=== PATIENT | female | born 2000 | race Caucasian/White ===

== ENCOUNTER 2019-07-10 06:00 | Emergency (ER) | payer BC ==
[2019-07-10] MEDS ORDERED: TRAMADOL HCL 50 MG TAB ONE (07:59)
[2019-07-10 08:39] VITALS: BP 132/70; TEMP 97.7; O2SAT 100
--- NOTE | 2019-07-10 09:32 | RAD REPORT ---
EXAM DESCRIPTION: RAD - Ankle Left 3 View -07/10/2019 7:32 am CLINICAL HISTORY: Left ankle pain status post injury FINDINGS: No fracture or dislocation is seen.
--- NOTE | 2019-07-11 18:43 | EDPHYS ---
Physician Documentation [facility] Name: Mariam Groves Age: 18 yrs Sex: Female : 2000 Arrival Date: 07/10/2019 Time: 06:02 Bed 19 Private MD: ED Physician Guillermo Bailey HPI: 07/09 07:29 This 18 yrs old Female presents to ER via Ambulatory with complaints of Ankle kdr Injury. 07:29 The patient presents with a contusion, decreased range of motion, an injury, pain, kdr tenderness. The complaints affect the left ankle. Onset: The symptoms/episode began/occurred suddenly, yesterday. Context: The problem was sustained at work, resulted from a heavy object falling, furniture or furniture accessory, Contusion. Associated signs and symptoms: The patient has no apparent associated signs or symptoms. Modifying factors: The symptoms are alleviated by nothing, the symptoms are aggravated by weight bearing, movement. Severity of symptoms: At their worst the symptoms were mild, moderate, just prior to arrival, in the emergency department the symptoms are unchanged. The patient has not experienced similar symptoms in the past. The patient has not recently seen a physician. 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 - Social history:: Smoking status: Patient denies any tobacco usage or history of. ROS: 07:29 Constitutional: Negative for fever, chills, and weight loss, Eyes: Negative for injury, kdr pain, redness, and discharge, Neck: Negative for injury, pain, and swelling, Cardiovascular: Negative for chest pain, palpitations, and edema. 07:29 MS/extremity: Positive for contusion, decreased range of motion, tenderness. Exam: 07:29 Constitutional: This is a well developed, well nourished patient who is awake, alert, kdr and in no acute distress. 07:29 Musculoskeletal/extremity: Extremities: grossly normal except: noted in the right ankle and medial aspect of right foot: decreased ROM, pain, tenderness, pain. Vital Signs: 06:11 BP 132 / 70; Pulse 72; Resp 16; Temp 97.7; Pulse Ox 100% on R/A; Pain 7/10; sg MDM: 07:58 Patient medically screened. kdr 08:00 Data reviewed: vital signs, nurses notes, radiologic studies. Counseling: I had a kdr detailed discussion with the patient and/or guardian regarding: the historical points, exam findings, and any diagnostic results supporting the discharge/admit diagnosis, radiology results, the need for outpatient follow up. ED course: The patient was stable int he Ed and happy with the care provided and the plan for discharge and follow-up. 07/09 06:11 Order name: Ankle Left 3 View XRAY 07/09 07:57 Order name: Kenneth wrap-joint: Left ankle; Complete Time: 08:18 kdr Administered Medications: 07:50 Drug: traMADol 50 mg Route: PO; iw Disposition: 07/10/19 07:58 Discharged to Home. Impression: Contusion of left ankle. - Condition is Stable. - Discharge Instructions: Crutch Use, [id number]. - Prescriptions for Tramadol 50 mg Oral Tablet - take 1 tablet by ORAL route every 8 hours as needed; 12 tablet. - Medication Reconciliation Form, Thank You Letter, Prescription Opioid Use, Work release form form. - Follow up: Private Physician; When: 2 - 3 days; Reason: If symptoms return, Further diagnostic work-up, Recheck today's complaints, Continuance of care, Re-evaluation by your physician. - Problem is new. - Symptoms have improved. Signatures: Dispatcher [employer] EDMS Cameron West RN RN Guillermo Bailey MD MD [facility] Myranda Santillan RN RN Corrections: (The following items were deleted from the chart) 08:33 07:58 07/10/2019 07:58 Discharged to Home. Impression: Contusion of left ankle. iw Condition is Stable. Forms are Medication Reconciliation Form, Thank You Letter, Antibiotic Education, Prescription Opioid Use. Follow up: Private Physician; When: 2 - 3 days; Reason: If symptoms return, Further diagnostic work-up, Recheck today's complaints, Continuance of care, Re-evaluation by your physician. Problem is new. Symptoms have improved. kdr
--- NOTE | 2019-07-11 18:43 | ER ---
Nurse's Notes [facility] Name: Mariam Groves Age: 18 yrs Sex: Female : 2000 Arrival Date: 07/10/2019 Time: 06:02 Bed 19 Private MD: Diagnosis: Contusion of left ankle Presentation: 07/09 06:09 Acuity: LESLY 4 sg 06:11 Chief complaint: Patient states: Reports she hit her left ankle at work last night ea against at table, pt reports swelling and pain to area. Coronavirus screen: Proceed with normal triage. Ebola Screen: No symptoms or risks identified at this time. Initial Sepsis Screen:. 06:11 Method Of Arrival: Ambulatory ea 06:11 Initial Sepsis Screen: Does the patient meet any 2 criteria? No. Patient's initial sg sepsis screen is negative. Does the patient have a suspected source of infection? No. Patient's initial sepsis screen is negative. Risk Assessment: Do you want to hurt yourself or someone else? Patient reports no desire to harm self or others. Onset of symptoms was July 10, 2019. Care prior to arrival: None. 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 - Social history:: Smoking status: Patient denies any tobacco usage or history of. Screenin:31 Abuse screen: Denies threats or abuse. Denies injuries from another. Nutritional iw screening: No deficits noted. Tuberculosis screening: No symptoms or risk factors identified. Fall Risk None identified. Assessment: 07:31 General: Appears in no apparent distress. comfortable, Behavior is calm, cooperative. iw Pain: Complains of pain in left lateral ankle. Neuro: Level of Consciousness is awake, alert, obeys commands, Oriented to person, place, time, situation, Moves all extremities. Full function. Cardiovascular: Patient's skin is warm and dry. Respiratory: Respiratory effort is even, unlabored. Derm: Skin is intact, is healthy with good turgor. Musculoskeletal: Range of motion: intact in all extremities. Vital Signs: 06:11 BP 132 / 70; Pulse 72; Resp 16; Temp 97.7; Pulse Ox 100% on R/A; Pain 7/10; sg ED Course: 06:02 Patient arrived in ED. ds1 06:10 Triage completed. sg 06:11 Arm band placed on. sg 07:21 Guillermo Bailey MD is Attending Physician. kdr 07:31 Myranda Santillan, RN is Primary Nurse. iw 07:32 Ankle Left 3 View XRAY In Process Unspecified. EDMS 07:45 Patient has correct armband on for positive identification. iw 08:32 No provider procedures requiring assistance completed. Patient did not have IV access iw during this emergency room visit. Administered Medications: 07:50 Drug: traMADol 50 mg Route: PO; iw Outcome: 07:58 Discharge ordered by . kdr 08:32 Discharged to home via wheelchair, with family. iw 08:32 Condition: good 08:32 Discharge instructions given to patient, Instructed on discharge instructions, follow up and referral plans. medication usage, Demonstrated understanding of instructions, follow-up care, medications, Prescriptions given X 1. 08:33 Patient left the ED. iw Signatures: Dispatcher [employer] EDMS Cameron West, RN RN Guillermo Bailey MD MD kdr Arelis Hampton ds1 Myranda Santillan, RN EVERARDO iw Yesenia Brasher RN RN black
== END 2019-07-10 08:33 | disposition home or self-care (01) ==
LOC: ER 06:00
DX: S90.02XA Contusion of left ankle, initial encounter (principal); W22.8XXA Striking against or struck by other objects, initial encounter; Y93.9 Activity, unspecified; Y92.89 Other specified places as the place of occurrence of the external cause; Y99.8 Other external cause status
CPT/HCPCS: 99283

== ENCOUNTER 2019-10-20 11:05 | Emergency (ER) | payer BC ==
[2019-10-20] MEDS ORDERED: PROMETHAZINE INJ 25 MG/ML AMP ONE (12:24)
[2019-10-20] MEDS ORDERED: NA CHLORIDE 0.9% 1,000 ML ONE (12:24)
[2019-10-20] MEDS ORDERED: FAMOTIDINE 20 MG/2 ML VIAL IV ONE (12:24)
[2019-10-20 12:48] LABS: Absolute Lymphocytes (CBC) 1.3 K/uL (0.7-4.9); Basophils % 0.2 % (0-1.3); Hematocrit 39.4 % (36.0-45.0); Lymphocytes % 15.8 % (15.3-44.8); MPV 8.1 fL (7.6-11.3); RBC Red Blood Cell Count 4.48 M/uL (3.86-4.86)
[2019-10-20 13:03] LABS: ALT/SGPT 22 U/L (12-78); AST/SGOT 16 U/L (15-37); Albumin 4.5 g/dL (3.4-5.0); Alkaline Phosphatase 85 U/L (45-117); BUN Blood Urea Nitrogen 8 mg/dL (7-18); Bicarbonate 28 mmol/L (21-32); Bilirubin Direct 0.1 mg/dL (0-0.2); Bilirubin Total 0.5 mg/dL (0.2-1.0); Glucose Level 103 mg/dL (74-106); Lipase 44 U/L (73-393); Potassium 3.5 mmol/L (3.5-5.1); Protein, Total 8.4 g/dL (6.4-8.2); Sodium Level 141 mmol/L (136-145)
[2019-10-20 13:24] LABS: Urine Blood NEGATIVE (NEG); Urine Glucose NEGATIVE (NEG); Urine Protein 1+ (NEG); Urine Specific Gravity 1.025 (1.005-1.030); Urine pH 6.5 (5.0-7.0)
[2019-10-20 13:28] LABS: Urine Bacteria >50 /HPF (<20); Urine Culture Reflex Order NOT NEEDED; Urine Mucus HEAVY /HPF (NONE SEEN); Urine RBC <5 /HPF (NONE SEEN)
--- NOTE | 2019-10-20 13:57 | RAD REPORT ---
EXAM DESCRIPTION: CT - Abdomen Pelvis W Contrast - 10/20/2019 1:42 pm CLINICAL HISTORY: Abd pain;Nausea / vomiting COMPARISON: No comparisons TECHNIQUE: Biphasic, helical CT imaging of the abdomen and pelvis was performed following 100 ml non -ionic IV contrast. No oral contrast administered. All CT scans are performed using dose optimization technique as appropriate and may include automated exposure control or mA/KV adjustment according to patient size. FINDINGS: No suspicious findings in the lung bases. The liver, spleen, and pancreas show no suspicious findings. Gallbladder and biliary tree are also wi thout suspicious finding. Symmetric renal function is seen with no hydronephrosis or suspicious renal mass. No pyelonephritis o r acute parenchymal process. No bladder abnormalities. No adrenal abnormalities. Uterus and ovaries s how no suspicious findings. No dilated bowel loops or bowel wall thickening. The appendix is not clearly defined. There are no ap pendicitis findings of the right lower quadrant. No free air, free fluid or inflammatory stranding. No hernia, mass or bulky lymphadenopathy. No suspicious bony findings. IMPRESSION: Contrast enhanced CT abdomen and pelvis showing no significant or suspicious finding.
--- NOTE | 2019-10-20 14:21 | EDPHYS ---
Physician Documentation [facility] Name: Mariam Groves Age: 19 yrs Sex: Female : 2000 Arrival Date: 10/20/2019 Time: 11:08 Bed 20 Private MD: ED Physician Cy Griffin HPI: 10/19 12:53 This 19 yrs old Female presents to ER via Ambulatory with complaints of rn Abdominal Pain, Vomiting - blood. 12:53 This 19 yrs old Female presents to ER via Ambulatory with complaints of rn Abdominal Pain, Vomiting . 12:53 The patient presents to the emergency department with nausea, vomiting, abdominal pain. rn Onset: The symptoms/episode began/occurred 3 day(s) ago. Possible causes: unknown. The symptoms are aggravated by nothing. The symptoms are alleviated by nothing. Severity of symptoms: At their worst the symptoms were moderate in the emergency department the symptoms are unchanged. The patient has not experienced similar symptoms in the past. The patient has not recently seen a physician. Reports abd pain, vomiting, for 3 days, has happened multiple times in past, called "gastroenteritis", seen by GI and given nausea medication in past, states wants a cure for this. No famhx of IBD. No blood in stool. Did notice a small amount of blood in emesis. No other medical problems. . 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 - Social history:: Smoking status: Patient reports the use of cigarette tobacco products, denies chronic smoking, but will smoke occasionally, Patient/guardian denies using tobacco, but has a distant history of tobacco abuse. - Family history:: not pertinent. - Hospitalizations: : No recent hospitalization is reported. ROS: 12:53 Constitutional: Negative for fever, chills, and weight loss, Cardiovascular: Negative rn for chest pain, palpitations, and edema, Respiratory: Negative for shortness of breath, cough, wheezing, and pleuritic chest pain, Abdomen/GI: + abd pain/nausea/vomiting Back: Negative for injury and pain, MS/Extremity: Negative for injury and deformity, Skin: Negative for injury, rash, and discoloration, Neuro: Negative for headache, weakness, numbness, tingling, and seizure. Exam: 12:53 Constitutional: This is a well developed, well nourished patient who is awake, alert, rn leaning forward and holding emesis bag. Head/Face: Normocephalic, atraumatic. Cardiovascular: Regular rate and rhythm. No pulse deficits. Respiratory: Hyperventilating and crying. Abdomen/GI: soft, mild periumbilical tenderness Skin: Warm, dry MS/ Extremity: Pulses equal, no cyanosis. Neurovascular intact. Full, normal range of motion. Equal circumference. Neuro: Awake and alert, GCS 15 Vital Signs: 11:24 BP 109 / 70; Pulse 69; Resp 15 S; Temp 97.1(TE); Pulse Ox 100% on R/A; Weight 90.72 kg ca1 (R); Height 5 ft. 4 in. (162.56 cm) (R); Pain 9/10; 12:45 BP 124 / 75; Pulse 65; Resp 28; Pulse Ox 100% on R/A; Pain 10/10; jr10 14:20 BP 102 / 47; Pulse 59; Resp 20; Pulse Ox 99% ; Pain 3/10; jr10 11:24 Body Mass Index 34.33 (90.72 kg, 162.56 cm) ca1 MDM: 11:53 Patient medically screened. rn 14:18 Differential diagnosis: gastritis, appendicitis, viral gastroenteritis, rn gastroenteritis. Data reviewed: vital signs, nurses notes, lab test result(s), radiologic studies, CT scan, and as a result, I will discharge patient. Counseling: I had a detailed discussion with the patient and/or guardian regarding: the historical points, exam findings, and any diagnostic results supporting the discharge/admit diagnosis, lab results, radiology results, the need for outpatient follow up, to return to the emergency department if symptoms worsen or persist or if there are any questions or concerns that arise at home. Response to treatment: the patient's symptoms have markedly improved after treatment, and as a result, I will discharge patient. Special discussion: Based on the patient's Hx, exam, and Dx evaluation, there is no indication for emergent surgery or inpatient Tx. It is understood by the patient/guardian that if the Sx's persist or worsen they need to return immediately for re-evaluation. I discussed with the patient/guardian in detail that at this point there is no indication for admission to the hospital. It is understood, however, that if the symptoms persist or worsen the patient needs to return immediately for re-evaluation. ED course: NO acute findings on CT, improved nausea, will dc home with phenergan and GI f/u. . 10/19 11:54 Order name: Basic Metabolic Panel; Complete Time: 13:40 rn 10/19 11:54 Order name: CBC with Diff; Complete Time: 13:40 rn 10/19 11:54 Order name: Hepatic Function; Complete Time: 13:40 rn 10/19 11:54 Order name: Lipase; Complete Time: 13:40 rn 10/19 11:54 Order name: Urine Microscopic Only; Complete Time: 13:40 rn 10/19 13:17 Order name: Urine Dipstick--Ancillary (enter results); Complete Time: 13:40 10/19 11:54 Order name: IV Saline Lock; Complete Time: 13:22 rn 10/19 11:54 Order name: Labs collected and sent; Complete Time: 13:22 rn 10/19 11:54 Order name: Urine Test (obtain specimen); Complete Time: 12:07 rn 10/19 12:03 Order name: CT Abd/Pelvis - IV Contrast Only; Complete Time: 14:15 rn 10/19 13:17 Order name: Urine --Ancillary (enter results); Complete Time: 13:40 10/19 11:54 Order name: Urine Dipstick-Ancillary (obtain specimen); Complete Time: 13:21 rn Administered Medications: 12:42 Drug: NS 0.9% 1000 ml Route: IV; Rate: 1000 ml; Site: left wrist; jr10 14:34 Follow up: Response: No adverse reaction; IV Status: Completed infusion jr10 13:17 Drug: Pepcid 20 mg Route: IVP; Site: left wrist; jr10 14:34 Follow up: Response: No adverse reaction jr10 13:17 Drug: Phenergan 25 mg Route: IVP; Site: left wrist; jr10 14:34 Follow up: Response: No adverse reaction jr10 Disposition: 10/20/19 14:20 Discharged to Home. Impression: Vomiting, Unspecified abdominal pain. - Condition is Stable. - Discharge Instructions: Abdominal Pain, Adult, Nausea and Vomiting, Adult. - Prescriptions for Phenergan 25 mg Rectal Suppository - insert 1 suppository by RECTAL route every 6 hours As needed; 12 suppository. promethazine 25 mg Oral Tablet - take 1 tablet by ORAL route every 6 hours As needed; 12 tablet. - Medication Reconciliation Form, Thank You Letter, Antibiotic Education, Prescription Opioid Use form. - Follow up: Private Physician; When: As needed; Reason: Recheck today's complaints, Re-evaluation by your physician. - Problem is new. - Symptoms have improved. Signatures: Dispatcher [employer] EDMS Cy Griffin MD MD rn Franky, EVERARDO Lizarraga RN Cecelia Alba RN RN jr10 Corrections: (The following items were deleted from the chart) 14:56 14:20 10/20/2019 14:20 Discharged to Home. Impression: Vomiting; Unspecified abdominal jr10 pain. Condition is Stable. Forms are Medication Reconciliation Form, Thank You Letter, Antibiotic Education, Prescription Opioid Use. Follow up: Private Physician; When: As needed; Reason: Recheck today's complaints, Re-evaluation by your physician. Problem is new. Symptoms have improved. rn
--- NOTE | 2019-10-20 14:21 | ER ---
Nurse's Notes [facility] Name: Mariam Groves Age: 19 yrs Sex: Female : 2000 Arrival Date: 10/20/2019 Time: 11:08 Bed 20 Private MD: Diagnosis: Vomiting;Unspecified abdominal pain Presentation: 10/19 11:24 Chief complaint: Patient states: Have gastroenteritis, taking Protonix, no relief. N/V ca1 x 3 days, unable to tolerate fluids, reports vomiting blood this morning. Reports mid abdominal pain. Coronavirus screen: Client denies travel out of the [place] in the last 14 days. At this time, the client does not indicate any symptoms associated with coronavirus-19. Ebola Screen: Patient negative for fever greater than or equal to 101.5 degrees Fahrenheit, and additional compatible Ebola Virus Disease symptoms Patient denies exposure to infectious person. Patient denies travel to an Ebola-affected area in the 21 days before illness onset. No symptoms or risks identified at this time. Initial Sepsis Screen: Does the patient meet any 2 criteria? No. Patient's initial sepsis screen is negative. Does the patient have a suspected source of infection? No. Patient's initial sepsis screen is negative. Risk Assessment: Do you want to hurt yourself or someone else? Patient reports no desire to harm self or others. Onset of symptoms was October 20, 2019. 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 - Social history:: Smoking status: Patient reports the use of cigarette tobacco products, denies chronic smoking, but will smoke occasionally, Patient/guardian denies using tobacco, but has a distant history of tobacco abuse. - Family history:: not pertinent. - Hospitalizations: : No recent hospitalization is reported. Screenin:45 Abuse screen: Denies threats or abuse. Denies injuries from another. Nutritional jr10 screening: No deficits noted. Tuberculosis screening: No symptoms or risk factors identified. Fall Risk IV access (20 points). Assessment: 12:45 General: Appears distressed, uncomfortable, Behavior is restless. Pain: Complains of jr10 pain in umbilical area, right upper quadrant and left upper quadrant Pain does not radiate. Pain currently is 9 out of 10 on a pain scale. Quality of pain is described as aching, sharp, Pain began 2-3 days ago. Is continuous, Alleviated by nothing. Noted to be crying, grimacing, guarding, moaning, restless, Also complains of nausea, pt noted to have active vomiting during initial assessment. Neuro: No deficits noted. Cardiovascular: No deficits noted. Denies chest pain. Respiratory: No deficits noted. Airway is patent Respiratory effort is even, unlabored, Respiratory pattern is regular, symmetrical, Denies shortness of breath. GI: Abdomen is non-distended, Pt is actively vomiting undigested food, Last BM was October 19, 2019. Bowel sounds present X 4 quads. Abd is soft Abdomen is tender to palpation in right upper quadrant and left upper quadrant Guarding noted X 4 quads. Reports upper abdominal pain, cramping, intolerance of fluids, intolerance of food, nausea, vomiting, since 3 days. : No deficits noted. No signs and/or symptoms were reported regarding the genitourinary system. Denies burning with urination, urinary frequency, urgency, vaginal bleeding. EENT: No deficits noted. No signs and/or symptoms were reported regarding the EENT system. Derm: No deficits noted. No signs and/or symptoms reported regarding the dermatologic system. Musculoskeletal: No deficits noted. No signs and/or symptoms reported regarding the musculoskeletal system. Vital Signs: 11:24 BP 109 / 70; Pulse 69; Resp 15 S; Temp 97.1(TE); Pulse Ox 100% on R/A; Weight 90.72 kg ca1 (R); Height 5 ft. 4 in. (162.56 cm) (R); Pain 9/10; 12:45 BP 124 / 75; Pulse 65; Resp 28; Pulse Ox 100% on R/A; Pain 10/10; jr10 14:20 BP 102 / 47; Pulse 59; Resp 20; Pulse Ox 99% ; Pain 3/10; jr10 11:24 Body Mass Index 34.33 (90.72 kg, 162.56 cm) ca1 ED Course: 11:08 Patient arrived in ED. as 11:27 Triage completed. ca1 11:28 Arm band placed on right wrist. ca1 11:53 Cy Griffin MD is Attending Physician. rn 12:07 Cecelia Dale, EVERARDO is Primary Nurse. jr10 12:45 Patient has correct armband on for positive identification. Placed in gown. Bed in low jr10 position. Call light in reach. Side rails up X2. Pulse ox on. NIBP on. 12:45 Inserted saline lock: 20 gauge in left wrist, using aseptic technique. Blood collected. jr10 IV is patent, is intact, with fluids infusing freely, with good blood return, Flushed. 13:42 CT Abd/Pelvis - IV Contrast Only In Process Unspecified. EDMS 14:31 No provider procedures requiring assistance completed. jr10 14:56 IV discontinued, intact, bleeding controlled, No redness/swelling at site. Pressure jr10 dressing applied. Administered Medications: 12:42 Drug: NS 0.9% 1000 ml Route: IV; Rate: 1000 ml; Site: left wrist; jr10 14:34 Follow up: Response: No adverse reaction; IV Status: Completed infusion jr10 13:17 Drug: Pepcid 20 mg Route: IVP; Site: left wrist; jr10 14:34 Follow up: Response: No adverse reaction jr10 13:17 Drug: Phenergan 25 mg Route: IVP; Site: left wrist; jr10 14:34 Follow up: Response: No adverse reaction jr10 Outcome: 14:20 Discharge ordered by . rn 14:55 Discharged to home ambulatory. jr10 14:55 Condition: improved 14:55 Discharge instructions given to patient, Instructed on discharge instructions, follow up and referral plans. Demonstrated understanding of instructions, follow-up care, medications, Prescriptions given X 2. 14:56 Patient left the ED. jr10 Signatures: Dispatcher [employer] EDMS Juanita Alberto Roman, MD MD rn Acob, Elham, RN RN ca1 Cecelia Dale, EVERARDO RN jr10
[2019-10-20 15:38] VITALS: TEMP 97.1
[2019-10-20 15:41] VITALS: BP 102/47; O2SAT 99
== END 2019-10-20 14:56 | disposition home or self-care (01) ==
LOC: ER 11:05
DX: R11.10 Vomiting, unspecified (principal); F41.8 Other specified anxiety disorders; F17.210 Nicotine dependence, cigarettes, uncomplicated; Z88.1 Allergy status to other antibiotic agents
CPT/HCPCS: 96361; 85025; 80048; 36415; 81025; 80076; 83690; 74177; 96375; 96374; 99284; Q9967; J2550; J7030; 81003; 81015

== ENCOUNTER 2019-12-17 14:50 | Emergency (ER) | payer BC ==
--- OUTSIDE RECORDS SUMMARY | 2019-12-17 14:53 | XMS REPORT | Clinical Summary ---
:2000 Author Organization [facility] Address [address] [place] [address] Care Team Providers Name Role Phone Hortencia Ferrell MD Primary Care Provider Allergies Active Allergy Reactions Severity Noted Date Comments Aminoglycosides Hives, Rash, Swelling Medium 11/30/2002 Zaina Itching, Rash Low 11/15/2019 Medications Medication Sig Dispensed Refills Start Date End Date Status dexlansoprazole 0 Acti ve (DEXILANT) 60 mg capsule DULoxetine (CYMBALTA) 0 09/09/2019 Active 20 MG capsule ONDANSETRON HCL ORAL 0 Active traZODone (DESYREL) 0 Active 100 MG tablet hyoscyamine Take 1 tablet 20 tablet 0 11/25/2019 12/25/2019 Ac tive (Levsin/SL) 0.125 mg (0.125 mg SL tabletIndications: total) by mouth Generalized abdominal every 4 (four) pain hours as needed for cramping for up to 30 days. promethazine Take 1 tablet 60 tablet 1 11/15/2019 12/15/2019 E xpired (PHENERGAN) 12.5 MG (12.5 mg total) tablet by mouth every 6 (six) hours as needed for nausea or vomiting for up to 30 days. Active Problems Not on file Encounters Date Type Specialty Care Team Description 12/05/2019 Hospital Encounter Radiology Petey Rowley Gener alized abdominal MD Chadwick pain 12/05/2019 Travel 11/25/2019 Travel 11/25/2019 Orders Only Gastroenterology Lisa Alberto General ized abdominal RN pain (Primary D x) 11/23/2019 Lab Lab Petey Rowley MD 11/22/2019 Hospital Encounter Radiology Petey Rowley Abnor mal weight loss; MD [place]wick Generalized abd ominal pain; Intractable vom iting with nausea, unspecified vomiting type 11/22/2019 Travel 11/22/2019 Telephone Gastroenterology Petey Rowley MD 11/18/2019 Lab Lab Petey Rowley Pre-op radha Genao MD 11/17/2019 Travel 11/17/2019 Telephone Gastroenterology Petey Rowley MD 11/15/2019 Office Visit Gastroenterology Petey Rowley l weight loss (Primary Dx); MD Chadwick Generalized abd ominal pain; Intractable vom iting with nausea, unspecified vomiting type; Pre-op evaluati on 11/15/2019 Orders Only Gastroenterology Petey Rowley MD 11/15/2019 Travel 10/24/2019 Travel after 12/16/2018 Surgical History Surgery Date Site/Laterality Comments UPPER GASTROINTESTINAL ENDOSCOPY ENDOSCOPIC ULTRASOUND (UPPER) Medical History Medical History Date Comments Hypertension Irritable bowel syndrome GERD (gastroesophageal reflux disease) Lactose intolerance Chronic constipation Chronic diarrhea Family History Medical History Relation Name Comments GERD Father [place] Colon cancer Maternal Grandmother Sonia dangelo Colon polyps Maternal Grandmother Sonia dangelo GERD Maternal Grandmother Sonia dangelo Colon polyps Mother Melissa aleman GERD Mother Melissa aleamn Relation Name Status Comments Father [place] Maternal Grandmother Sonia dangelo Mother Melissa aleman Social History Tobacco Use Types Packs/Day Years Used Date Current Some Day Smoker Cigarettes 0 2 Smokeless Tobacco: Never Used Alcohol Use Drinks/Week oz/Week Comments Not Currently 0 Glasses of wine 0.0 0 Cans of beer 0 Shots of liquor 0 Standard drinks or equivalent Sex Assigned at Date Recorded Female 11/09/2019 8:47 PM CDT COVID-19 Exposure Response Date Recorded In the last month, have you been in contact with No / Unsure 12/05/2019 1:04 PM CDT someone who was confirmed or suspected to have Coronavirus / COVID-19? Last Filed Vital Signs Vital Sign Reading Time Taken Comments Blood Pressure 115/81 11/15/2019 1:30 PM CDT Pulse 73 11/15/2019 1:30 PM CDT Temperature - - Respiratory Rate - - Oxygen Saturation - - Inhaled Oxygen Concentration - - Weight 90.7 kg (200 lb) 12/05/2019 1:19 PM CDT Height 162.6 cm (5' 4") 11/15/2019 1:30 PM CDT Body Mass Index 34.33 11/15/2019 1:30 PM CDT Plan of Treatment Health Maintenance Due Date Last Done Comments CHLAMYDIA SCREENING 2015 INFLUENZA VACCINE 09/10/2019 12/18/2006, 12/29/2005 Procedures Procedure Name Priority Date/Time Associated Comments Diagnosis CT ABDOMEN PELVIS W Routine 12/05/2019 2:25 Generalized Resu lts for this CONTRAST PM CDT abdominal pain procedure are in the results section. SURGICAL PATHOLOGY Routine 11/23/2019 2:13 Resul ts for this REQUEST PM CDT procedure are i n the results section. EGD-EXTERNAL Routine 11/23/2019 12:27 Abnormal weight PM CDT loss Generalized abdominal pain Intractable vomiting with nausea, unspecified vomiting type US ABDOMEN COMPLETE Routine 11/22/2019 4:08 Abnormal weight R esults for this PM CDT loss procedure are in Generalized the results abdominal pain section. Intractable vomiting with nausea, unspecified vomiting type ESTIMATED GFR Routine 11/18/2019 2:36 Results fo r this PM CDT procedure are i n the results section. SEDIMENTATION RATE Routine 11/18/2019 2:36 Pre-op evaluation Results for this PM CDT procedure are i n the results section. C-REACTIVE PROTEIN Routine 11/18/2019 2:36 Pre-op evaluation Results for this PM CDT procedure are i n the results section. T4, FREE Routine 11/18/2019 2:36 Pre-op evaluation Result s for this PM CDT procedure are i n the results section. T4 Routine 11/18/2019 2:36 Pre-op evaluation Result s for this PM CDT procedure are i n the results section. LIPASE LEVEL Routine 11/18/2019 2:36 Pre-op evaluation Result s for this PM CDT procedure are i n the results section. AMYLASE LEVEL Routine 11/18/2019 2:36 Pre-op evaluation Resul ts for this PM CDT procedure are i n the results section. COMPREHENSIVE Routine 11/18/2019 2:36 Pre-op evaluation Resul ts for this METABOLIC PANEL PM CDT procedure ar e in the results section. CBC HEMOGRAM Routine 11/18/2019 2:36 Pre-op evaluation Result s for this PM CDT procedure are i n the results section. THYROID STIMULATING Routine 11/18/2019 2:36 Pre-op evaluation Results for this HORMONE PM CDT procedure are i n the results section. T3, FREE Routine 11/18/2019 2:36 Pre-op evaluation Result s for this PM CDT procedure are i n the results section. COVID-19 QUALITATIVE Routine 11/18/2019 2:32 Pre-op evaluatio n Results for this PCR PM CDT procedure are i n the results section. LIPASE LEVEL Routine 11/15/2019 2:06 Results for this PM CDT procedure are i n the results section. AMYLASE LEVEL Routine 11/15/2019 2:06 Results fo r this PM CDT procedure are i n the results section. T3, FREE Routine 11/15/2019 2:06 Results for this PM CDT procedure are i n the results section. THYROID STIMULATING Routine 11/15/2019 2:06 Resu lts for this HORMONE PM CDT procedure are i n the results section. T4 Routine 11/15/2019 2:06 Results for this PM CDT procedure are i n the results section. T4, FREE Routine 11/15/2019 2:06 Results for this PM CDT procedure are i n the results section. C-REACTIVE PROTEIN Routine 11/15/2019 2:06 Resul ts for this PM CDT procedure are i n the results section. CBC HEMOGRAM Routine 11/15/2019 2:06 Results for this PM CDT procedure are i n the results section. SEDIMENTATION RATE Routine 11/15/2019 2:06 Resul ts for this PM CDT procedure are i n the results section. COMPREHENSIVE Routine 11/15/2019 2:06 Results fo r this METABOLIC PANEL PM CDT procedure ar e in the results section. after 12/16/[address] Abdomen Pelvis W Contrast (12/05/2019 2:25 PM CDT) Specimen Narrative Performed At EXAMINATION: CT ABDOMEN PELVIS W CONTR AST HM [facility] CLINICAL HISTORY: R10.84 Generalized abdominal pain, Abd pain unspecified COMPARISON: None. TECHNIQUE: Multiple axial CT images of the Abdomen and pelvis were obtained With IV contrast Oral contrast was administ ered. . Sagittal and coronal reconstructions were done. CT imaging was performed with iterative reconstruction technique and/or automated exposure control to reduce rad iation dose. FINDINGS: HEPATOBILIARY: No focal hepatic lesion s. No biliary ductal dilation.. GALLBLADDER: Normal. SPLEEN: No splenomegaly. PANCREAS: No focal masses or ductal di lation. ADRENALS: No adrenal nodules. KIDNEYS: No hydronephrosis, stones or solid masses.. PERITONEUM/RETROPERITONEUM: No free ai r or fluid. No lymphadenopathy. ABDOMINAL AORTA/IVC: No aneurysm or diss ection. GI TRACT: The bowel demonstrate no distention or wal l thickening. There are no signs of appendicitis. No s igns of diverticulitis. PELVIC ORGANS/BLADDER: Unremarkable. BONES AND SOFT TISSUES: No acute abnor malities. VISUALIZED LOWER CHEST: No acute abnorma lity. IMPRESSION: No acute abnormality. [id number] Procedure Note Interface, Radiology Results Incoming - 12/05/2019 2:38 PM CDT EXAMINATION: CT ABDOMEN PELVIS W CONTRAST CLINICAL HISTORY: R10.84 Generalized ab dominal pain, Abd pain unspecified COMPARISON: None. TECHNIQUE: Multiple axial CT images of t he Abdomen and pelvis were obtained With IV contrast Oral contrast was administered. . Sagittal and coronal reconstructions were done. CT imaging was performed with iterative reconstruction technique and/or automated exposure control to reduce radiation dose. FINDINGS: HEPATOBILIARY: No focal hepatic lesions . No biliary ductal dilation.. GALLBLADDER: Normal. SPLEEN: No splenomegaly. PANCREAS: No focal masses or ductal dil ation. ADRENALS: No adrenal nodules. KIDNEYS: No hydronephrosis, stones or s olid masses.. PERITONEUM/RETROPERITONEUM: No free air or fluid. No lymphadenopathy. ABDOMINAL AORTA/IVC: No aneurysm or diss ection. GI TRACT: The bowel demonstrate no dist ention or wall thickening. There are no signs of appendicitis. No signs of diverticulitis. PELVIC ORGANS/BLADDER: Unremarkable. BONES AND SOFT TISSUES: No acute abnorm alities. VISUALIZED LOWER CHEST: No acute abnorma lity. IMPRESSION: No acute abnormality. OPC-[id number] Performing Organization Address City/State/ZIP Code Phon e Number [facility] [address] [place] [address] Surgical pathology request (11/23/2019 2:13 PM CDT) [facility] DEPARTMENT OF PATHOLOGY AND GENOMIC MEDICINE Surgical pathology See link below [facility] DEPARTMENT OF report for PDF Lab PATHOLOGY AND Report GENOMIC MEDICINE Result status This is Final [facility] DEPARTMENT OF Report for PATHOLOGY AND [id number] GENOMIC MEDICINE Specimen Performing Organization Address City/[facility]/ZIP Code Phon e Number [facility] DEPARTMENT OF PATHOLOGY AND [address] [place] [phone] GENOMIC MEDICINE EGD- EXTERNAL MCE (11/23/2019 12:27 PM CDT) Narrative Performed At This result has an attachment that is no t available. Performing Organization Address City/State/ZIP Code Phon e Number [facility] ENDOSCOPY [address] [place] [address] [address] US Abdomen Complete (11/22/2019 4:08 PM CDT) Specimen Narrative Performed At EXAM: US ABDOMEN COMPLETE [facility] CLINICAL DATA: R63.4 Abnormal weight loss, R10.84 Ge neralized abdominal pain, Abd pain COMPARISON: NONE. TECHNIQUE: Sonographic evaluation of the abdomen inclu ding grayscale/B mode, color and spectral Doppler techniq ue. FINDINGS: Liver: The liver demonstrates normal echogenicity wi thout focal mass or intrahepatic biliary ductal dilatatio n. MPV: Doppler evaluation of the portal vein demonstra bernardo normal hepatopetal flow. The main portal vein measures 1.1 cm. Gallbladder: The gallbladder is without evidence of calculi. The gallbladder wall is not thickened and there is no taty cholecystic fluid. Sonographic Andino's sign is negative. CBD: The common bile duct measures 0.4 c m , within normal limits. Pancreas: The visualized portions of the pancreas ar e within normal limits. Spleen: The spleen is homogeneous and not enlarged m easuring 10.4 x 4.4 x 3.7 cm. Right Kidney: The right kidney is normal in size and echogenicity. There is no evidence of mass, calculi, or hydronephros is. The right kidney measures 9.3 x 5.4 x 3.9 cm. Left Kidney: The left kidney is normal in size and e chogenicity. There is no evidence of mass, calculi, or hydronephrosis. Th e left kidney measures 10.5 x 4.7 x 4.8 cm. Aorta: The visualized upper abdominal aorta demonstr ates no evidence of ectasia or aneurysm. IVC: The visualized portions of the inferior vena ca va are unremarkable. Ascites: No abnormal abdominal fluid collections are v isualized. There is no evidence of ascites. Pleural Effusion: There are no pleural effusions. IMPRESSION: No acute abnormality. [facility]-[id number] Dictated and approved by radiology resid ent/fellow: Andi Patel M.D. I, Sheridan Moya M.D., personally reviewed the images and resident's/fellow's findings and agree with the final report. Procedure Note Interface, Radiology Results Incoming - 11/22/2019 4:25 PM CDT EXAM: US ABDOMEN COMPLETE CLINICAL DATA: R63.4 Abnormal weight lo ss, R10.84 Generalized abdominal pain, Abd pain COMPARISON: NONE. TECHNIQUE: Sonographic evaluation of the abdomen including grayscale/B mode, color and spectral Doppler technique. FINDINGS: Liver: The liver demonstrates normal ec hogenicity without focal mass or intrahepatic biliary ductal dilatation. MPV: Doppler evaluation of the portal v ein demonstrates normal hepatopetal flow. The main portal vein measures 1.1 cm. Gallbladder: The gallbladder is without evidence of calculi. The gallbladder wall is not thickened and there is no pericholecystic fluid. Sonographic Andino's sign is negative. CBD: The common bile duct measures 0.4 c m , within normal limits. Pancreas: The visualized portions of th e pancreas are within normal limits. Spleen: The spleen is homogeneous and n ot enlarged measuring 10.4 x 4.4 x 3.7 cm. Right Kidney: The right kidney is flaquito l in size and echogenicity. There is no evidence of mass, calculi, or hydronephrosis. The right kidney measures 9.3 x 5.4 x 3.9 cm. Left Kidney: The left kidney is normal in size and echogenicity. There is no evidence of mass, calculi, or hydronephrosis. The left kidney measures 10.5 x 4.7 x 4.8 cm. Aorta: The visualized upper abdominal a antonio demonstrates no evidence of ectasia or aneurysm. IVC: The visualized portions of the inf erior vena cava are unremarkable. Ascites: No abnormal abdominal fluid col lections are visualized. There is no evidence of ascites. Pleural Effusion: There are no pleural effusions. IMPRESSION: No acute abnormality. [facility]-[id number] Dictated and approved by radiology resid ent/fellow: Andi Patel M.D. I, Sheridan Moya M.D., personally review ed the images and resident's/fellow's findings and agree with the final report. Performing Organization Address City/State/ZIP Code Phon e Number [facility] [address] [place] [address] Estimated GFR (11/18/2019 2:36 PM CDT) Estimated GFR >=90 mL/min/1.73 [facility] Comment: m2 HOSPITAL Catergory Units Interpretation G1 >=90 Normal or high G2 60-89 Mildly decreased G3a 45-59 Mildly to moderately decreas ed G3b 30-44 Moderately to severely decre ased G4 15-29 Severely decreased G5 <15 Kidney failure The eGFR was calculated using the Chronic Kidney Disea se Epidemiology Collaboration (CKD-EPI) equation. Interpretation is based on recommendations of the National Kidney Foundation-Kidney Disease Outcomes Colby lity Initiative (NKF-KDOQI) published in 2014. Specimen Performing Organization Address City/[facility] Phon e Number [facility] DEPARTMENT OF PATHOLOGY AND [address] [place] [address] [phone] [address] Sedimentation rate (11/18/2019 2:36 PM CDT)Only the most recent of2 results within the time period is included. Pathologist Sig nature Sedimentation rate 6 0 - 20 mm/hr [facility] Specimen Blood Performing Organization Address City/[facility] Phon e Number [facility] DEPARTMENT OF PATHOLOGY AND [address] [place] [address] [phone] [address] CBC hemogram (11/18/2019 2:36 PM CDT)Only the most recent of2 resultswithin the time period is included. Pathologist Sig nature WBC 5.07 4.50 - 11.00 k/uL [facility] RBC 4.26 4.20 - 5.50 m/uL [facility] HGB 12.6 12.0 - 16.0 g/dL [facility] HCT 38.0 37.0 - 47.0 % [facility] MCV 89.2 82.0 - 100.0 fL [facility] MCH 29.6 27.0 - 34.0 pg [facility] MCHC 33.2 31.0 - 37.0 g/dL [facility] RDW - SD 40.3 37.0 - 55.0 fL [facility] MPV 9.7 8.8 - 13.2 fL [facility] Platelet count 246 150 - 400 k/uL [facility] Nucleated RBC 0.00 /100 WBC [facility] Specimen Blood Performing Organization Address City/[facility] Phon e Number [facility] DEPARTMENT OF PATHOLOGY AND [address] [place] [address] [phone] [address] C-reactive protein (11/18/2019 2:36 PM CDT)Only the most recent of2 results within the time period is included. Pathologist Sig nature CRP <0.30 0.00 - 0.50 mg/dL [facility] Specimen Blood Performing Organization Address [facility] Phon e Number [facility] DEPARTMENT OF PATHOLOGY AND [address] [place] [address] [phone] [address] T3, free (11/18/2019 2:36 PM CDT)Only the most recent of2 resultswithin the time period is included. Pathologist Sig nature T3, free 3.0 2.4 - 4.2 pg/mL [facility] Comment: REFERENCE INTERVAL: Triiodothyronine, Free (Free T3) Access complete set of age- and/or gender-specific ref erence intervals for this test in the [email or web address] Test Di rectory ([employer]). Performed By: [employer] [address] [place] [address] [employer]ator: Юлия Blanchard MD Specimen Serum Performing Organization Address [facility] Phon e Number [facility] [address] [place] [address] [facility] [address] [place] [address] Thyroid stimulating hormone (11/18/2019 2:36 PM CDT)Only the most recent of2 resultswithin the time period is included. Pathologist Sig nature TSH 0.62 0.27 - 4.20 uIU/mL [facility] ITAL Specimen Blood Performing Organization Address City/[facility] Phon e Number [facility] DEPARTMENT OF PATHOLOGY AND [address] [place] [address] [phone] [address] T4, free (11/18/2019 2:36 PM CDT)Only the most recent of2 resultswithin the time period is included. Pathologist Sig nature T4, free 1.0 0.9 - 1.7 ng/dL [facility] Specimen Blood Performing Organization Address City/[facility] Phon e Number [facility] DEPARTMENT OF PATHOLOGY AND [address] [place] [address] [phone] [address] T4 (11/18/2019 2:36 PM CDT)Only the most recent of2 resultswithin the time period is included. Pathologist Sig nature T4 6.0 4.5 - 11.7 ug/dL [facility] Specimen Blood Performing Organization Address City/[facility] Phon e Number [facility] DEPARTMENT OF PATHOLOGY AND [address] [place] [phone] [address] Lipase level (11/18/2019 2:36 PM CDT)Only the most recent of2 resultswithin the time period is included. Pathologist Sig nature Lipase 15 13 - 60 U/L [facility] Specimen Blood Performing Organization Address City/[facility] Phon e Number [facility] DEPARTMENT OF PATHOLOGY AND [address] [place] [address] [phone] [address] Amylase level (11/18/2019 2:36 PM CDT)Only the most recent of2 resultswithin the time period is included. Pathologist Sig nature Amylase 65 28 - 100 U/L [facility] Specimen Blood Performing Organization Address City/[facility] Phon e Number [facility] DEPARTMENT OF PATHOLOGY AND [address] [place] [address] [address] Comprehensive metabolic panel (11/18/2019 2:36 PM CDT)Only the most recent of2 resultswithin the time period is included. Sodium 143 135 - 148 [facility] mEq/L [facility] Potassium 4.2 3.5 - 5.0 [facility] mEq/L [facility] Chloride 107 98 - 112 [facility] mEq/L [facility] CO2 23 (L) 24 - 31 mEq/L [facility] Anion gap 13@ANIO 7 - 15 mEq/L [facility] BUN 11 6 - 20 mg/dL [facility] Creatinine 0.88 0.50 - 0.90 [facility] mg/dL HOSPITAL Glucose 84 65 - 99 mg/dL [facility] Calcium 9.2 8.3 - 10.2 [facility] mg/dL [facility] Protein 7.0 6.3 - 8.3 [facility] Comment: g/dL HOSPITAL - 4.6-7.0 g/dL 1 week 4.4-7.6 g/dL 7 months-1year 5.1-7.3 g/dL 1-2 years 5.6-7.5 g/dL >3 years 6.0-8.0 g/dL 18-150 6.3-8.3 g/dL Albumin 3.6 3.5 - 5.0 [facility] g/dL [facility] A/G ratio 1.1 0.7 - 3.8 [facility] Alkaline phosphatase 80 35 - 104 U/L [facility] AST 15 10 - 35 U/L [facility] ALT 14 5 - 50 U/L [facility] Total bilirubin <0.2 0.0 - 1.2 [facility] mg/dL HOSPITAL Specimen Blood Performing Organization Address City/[facility] Phon e Number [facility] DEPARTMENT OF PATHOLOGY AND [address] [place] [address] COVID-19 qualitative PCR (11/18/2019 2:32 PM CDT) Interpretation Negative results do not prec lude 2019-nCoV infection and should not be used as the sole basis for treatment or other patient management decisions. Negative results must be combined with clinical observations, patient history, and epidemiological RUFFIN information. [facility] COVID-19 qualitative Not-Detected Not-Detecte INDIANOLA PCR result d [facility] COVID-19 qualitative See link below for INDIANOLA PCR PDF Lab [facility] ReportComment: Case HOSPITAL Number: [id number] Specimen Nasopharyngeal swab Performing Organization Address City/[facility] Phon e Number [facility] DEPARTMENT OF PATHOLOGY AND [address] [place] [address] 0 [place] [phone] [facility] after 12/16/2018 Advance Directives For more information, please contact: [phone] Type Date Recorded Patient Head Of Training And Development Explanati on Advance Directives, Living 12/05/2019 1:04 PM Will and Medical Power of Clerical Administrative Assistant
--- OUTSIDE RECORDS SUMMARY | 2019-12-17 14:53 | XMS REPORT | Continuity of Care Document ---
:2000 Author Organization [facility] t Address [address] [place] [address] Care Team Providers Name Role Phone Ghassan CANCHOLA Primary Care Physician Chadwick Rowley MD Attending Clinician Remy MCGEE Attending Clinician Unavailable Payers Payer Name Policy Type Policy Effective Date Expiration Date [facility] ce Number [id number] CHOICE 2019 [place] PPO/FEDERAL 001 00:00:00 [place] EMPL [id number] -Pre sentPPO Problems This patient has no known problems. Allergies, Adverse Reactions, Alerts Allergy Allergy Status Severity Reaction(s) Onset Inactive Treating Comm ents Source Name Type Date Date Clinician Zaina Propensi Active Itching, 2019-02 [place] to Rash 0-06 [facility] adverse 00:00: st reaction 00 s to drug Aminogly Propensi Active Hives, Rash, 2002-02 [place] cosides ty to Swelling 0-22 [facility] adverse 00:00: st reaction 00 s to drug Family History Family Member Diagnosis Comments Start Date Stop Date Source Natural father GERD [place] [facility] Maternal grandmother Colon cancer [place] Maternal grandmother Colon polyps [place] Maternal grandmother GERD [place] Natural mother Colon polyps [place] Natural mother GERD [facility] thodist Social History Social Habit Start Date Stop Date Quantity Comments Source History of Cigarette Smoker [place] [facility] Not sure [place] [facility] dist SARS-CoV-2 (event) Tobacco use and 2019-11-15 2019-11-15 Never used Mac M ethodist exposure 00:00:00 00:00:00 Alcohol intake 2019-11-15 2019-11-15 Ex-drinker Bubba Marte thodist 00:00:00 00:00:00 (finding) Smoking Status Start Date Stop Date Source Current some day smoker 2019-11-15 00:00:00 Julissa Talbot Medications Ordered Filled Start Stop Current Ordering Indication Dosage Frequency Signature Comments Components Source Medication Medication Date Date Medication? Clinician (SIG) Name Name hyoscyamine 2019-02 2020- Yes Generalized .125mg Q4H Take 1 [place] (Levsin/SL) 0-16 11-15 abdominal tablet Methodi 0.125 mg SL 00:00: 23:59 pain (0.[address] tablet 00 :00 total) by mouth every 4 (four) hours as needed for cramping for up to 30 days. traZODone 2019-02 Yes Bubba (DESYREL) 0-06 [facility] 100 MG 13:30: st tablet 57 dexlansopra 2019-02 Yes Radames wagoner zole 0-06 [facility] (DEXILANT) 13:30: st 60 mg 56 capsule ONDANSETRON 2019-02 Yes Radames wagoner HCL ORAL 0-06 [facility] 13:30: st 56 promethazin 2019-02 2020- No 12.5mg Q6H Take 1 [place] 0-06 11-05 tablet Method[facility] (PHENERGAN) 00:00: 23:59 (12.5 mg s t 12.5 MG 00 :00 total) by tablet mouth every 6 (six) hours as needed for nausea or vomiting for up to 30 days. DULoxetine Yes Bubba (CYMBALTA) 7-31 [facility] 20 MG 00:00: st capsule 00 Vital Signs Vital Name Observation Time Observation Value Comments Source Body weight 2019-12-05 13:19:00 90.719 kg Bubba Talbot BMI 2019-12-05 13:19:00 34.33 kg/m2 Bubba Talbot Systolic blood 2019-11-15 13:30:00 115 mm[Hg] Radames n [facility] pressure Diastolic blood 2019-11-15 13:30:00 81 mm[Hg] Jessica on [facility] pressure Heart rate 2019-11-15 13:30:00 73 /min Bubba Talbot Body height 2019-11-15 13:30:00 162.6 cm Bubba Talbot Procedures Procedure Date / Time Performed Performing Clinician [facility] e CT ABDOMEN PELVIS W 2019-12-05 14:25:24 Hernando Rowley [facility] CONTRAST SURGICAL PATHOLOGY 2019-11-23 14:13:00 Hernando Rowley on [facility] REQUEST EGD-EXTERNAL 2019-11-23 12:27:11 Hernando Rowley US ABDOMEN COMPLETE 2019-11-22 16:08:51 Hernando Rowley [place] T3, FREE 2019-11-18 14:36:00 Hernando Rowley THYROID STIMULATING 2019-11-18 14:36:00 Hernando Rowley [place] HORMONE CBC HEMOGRAM 2019-11-18 14:36:00 eHrnando Rowley COMPREHENSIVE METABOLIC 2019-11-18 14:36:00 Hernando Rowley PANEL AMYLASE LEVEL 2019-11-18 14:36:00 Hernando Rowleyist LIPASE LEVEL 2019-11-18 14:36:00 Hernando Rowleyist T4 2019-11-18 14:36:00 Hernando Rowley [place] T4, FREE 2019-11-18 14:36:00 Hernando Rowley C-REACTIVE PROTEIN 2019-11-18 14:36:00 Hernando Rowley on [place] SEDIMENTATION RATE 2019-11-18 14:36:00 Hernando Rowley on [place] ESTIMATED GFR 2019-11-18 14:36:00 Hernando Rowley COVID-19 QUALITATIVE PCR 2019-11-18 14:32:00 Hernando Rowley [place] COMPREHENSIVE METABOLIC 2019-11-15 14:06:00 Hernando Rowley PANEL SEDIMENTATION RATE 2019-11-15 14:06:00 Hernando Rowley on [facility] CBC HEMOGRAM 2019-11-15 14:06:00 Hernando Rowleyist C-REACTIVE PROTEIN 2019-11-15 14:06:00 Hernando Rowley on [place] T4, FREE 2019-11-15 14:06:00 Hernando Rowley [place] T4 2019-11-15 14:06:00 Hernando Rowley [place] THYROID STIMULATING 2019-11-15 14:06:00 Hernando Rowley [place] HORMONE T3, FREE 2019-11-15 14:06:00 Hernando Rowley [place] AMYLASE LEVEL 2019-11-15 14:06:00 Hernando Rowley Bubba Talbot LIPASE LEVEL 2019-11-15 14:06:00 Hernando Rowley [facility] Plan of Care Planned Activity Planned Date Details Comments Source Future Scheduled 2019-09-10 INFLUENZA VACCINE [place] Test 00:00:00 [code = INFLUENZA VACCINE] Future Scheduled 2015 CHLAMYDIA SCREENING [place] [facility] Test 00:00:00 [code = CHLAMYDIA SCREENING] Encounters Start End Encounter Admission Attending Care Care Encounter Source Date/Time Date/Time Type Type Clinicians Facility Department ID 2019-12-05 2019-12-05 Outpatient [facility] [id number] [place] 00:00:00 00:00:00 HERNANDO [address] 2019-11-23 2019-11-23 [facility]patient [facility] [id number] [place] 00:00:00 00:00:00 HERNANDO [address] 2019-11-22 2019-11-22 [facility]patient [facility] [id number] [place] 00:00:00 00:00:00 HERNANDO [address] 2019-11-18 2019-11-18 [facility] [id number] [place] 00:00:00 00:00:00 HERNANDO [address] 2019-11-15 2019-11-15 [facility] [id number] [place] 00:00:00 00:00:00 HERNANDO [address] Results Test Description Test Time Test Comments Results Result [facility] e Comments CT Abdomen 2019-11-11 [facility] Pelvis W [address] Contrast 14:35:40 12/05/2019 2:38 PM CDTEXAMINATION: CT ABDOMEN PELVIS W CONTRASTCLINICAL HISTORY: R10.84 Generalized abdominal pain, Abd pain unspecifiedCOMPARISON : None.TECHNIQUE: Multiple axial CT images of the Abdomen and pelvis were obtained With IV contrast Oral contrast was administered. . Sagittal and coronal reconstructions were done. CT imaging was performed with iterative reconstruction technique and/or automated exposure control to reduce radiation dose.FINDINGS:HEPATOB ILIARY: No focal hepatic lesions. No biliary ductal dilation..GALLBLADDER : Normal.SPLEEN: No splenomegaly.PANCREAS : No focal masses or ductal dilation.ADRENALS: No adrenal nodules.KIDNEYS: No hydronephrosis, stones or solid masses..PERITONEUM/RE TROPERITONEUM: No free air or fluid. No lymphadenopathy.ABDOM INAL AORTA/IVC: No aneurysm or dissection.GI TRACT: The bowel demonstrate no distention or wall thickening. There are no signs of appendicitis. No signs of diverticulitis.PELVIC ORGANS/BLADDER: Unremarkable.BONES AND SOFT TISSUES: No acute abnormalities.VISUALI ZED LOWER CHEST: No acute abnormality.IMPRESSIO N:No acute abnormality.[id number] Surgical pathology request 2019-11-24 16:16:20 Test Item Value Reference Range Interpretation Comme nts Case number (test code = [id number]) [id number] Surgical pathology report (test code = See link below for PDF Lab R eport 2255) Result status (test code = 9513946) This is Final Report for [id number] [facility] Abdomen [id number] 16:22:46Hm Interface, Radiology Results 11/22/2019 4:25 PM CDTEXAM: US ABDOMEN COMPLETECLINICAL D VIANNEY: R63.4 Abnormal weight loss, R10.84 Generalized abdominal pain, Abd pain COMPARISON: NONE.TECHNIQUE: Sonographic evaluation of the abdomen including grayscale/B mode, color and spectral Doppler technique.FINDINGS:Liver: The liver demonstrates normal echogenicity without focal mass or intrahepatic biliary ductal dilatation.MPV: Doppler evaluation of the portal vein demonstrates normal hepatopetal flow. The main portal vein measures 1.1 cm.Gallbladder: The gallbladder is without evidence of calculi. The gallbladder wall is not thickened and there is no pericholecystic fluid. Sonographic Murp hy's sign is negative.CBD: The common bile duct measures 0.4 cm , within normal limits.Pancreas: The visualized portions of the pancreas are within normal limits.Spleen: The spleen is homogeneous andnot enlarged measuring 10.4 x 4.4 x 3.7 cm.Right Kidney: The right kidney is normal in size and echogenicity. There is no evidence of mass, calculi, or hydronephrosis. The right kidney measures 9.3 x5.4 x 3.9 cm.Left Kidney: The left kidney is normal in size and echogenicity. There is no evidence of mass, calculi, or hydronephrosis. The left kidney measures 10.5 x 4.7 x 4.8 cm.Aorta: The visualized upper abdominal aorta demonstrates no evidence of ectasia or aneurysm. IVC: The visualized portions of the inferior vena cava are unremarkable.Ascites: No abnormal abdominal fluid collections are visualized. There is no evidence of ascites.Pleural Effusion: There are no pleural effusions.IMPRESSION:No acute abnormality.[facility]- [id number] and approved by vice president/fellow: Andi Patel M.D.I, Sheridan Moya M.D., personally reviewed the images and resident's/fellow's findings and agree with the final report.Bubba Talbot T3, [id number] 16:30:52 Test Item Value Reference Range Interpretation Comments T3, free (test code 3.0 pg/mL 2.4-4.2 REFERENC E INTERVAL: = 5404-9) Triiodothyronin e, Free (Free T3)Access complete set of age- and /or gender-specific reference intervals for t his test in the [email or web address] Lab oratory Test Directory ([employer]).P erformed By: [facility] Marbella [address] [id number] aboratory Director: MD Bubba BeaversCOVID-19 qualitative [id number] 23:33:15 Test Item Value Reference Range Interpretation Comments Interpretation (test Negative results do code = 2781214) not preclude 2019-nCoV infection and should not be used as the sole basis for treatment or other patient management decisions. Negative results must be combined with clinical observations, patient history, and epidemiological information. COVID-19 qualitative Not-Detected Not-Detected PCR result (test code = 38407-5) COVID-19 qualitative See link below for C ase Number: PCR (test code = PDF Lab Report [id number]) Bubba Voedimentation [id number] 16:15:59 Test Item Value Reference Range Interpretation Comments Sedimentation rate (test code = 6 0- 20 mm/hr 22061-5) [place] [facility] [id number] 15:42:23 Test Item Value Reference Range Interpretation Comments Sodium (test code = 143 135- 148 mEq/L 2951-2) Potassium (test code = 4.2 3.5- 5.0 mEq/L 2823-3) Chloride (test code = 107 98- 112 mEq/L 5-0) CO2 (test code = 2027-) 23 24- 31 mEq/L L Anion gap (test code = 13@ANIO 7- 15 mEq/L 63302-7) BUN (test code = 3094-0) 11 mg/dL 6-20 Creatinine (test code = 0.88 mg/dL 0.5-0.9 0-0) Glucose (test code = 84 mg/dL 65-99 2345-7) Calcium (test code = 9.2 mg/dL 8.3-10.2 75262-6) Protein (test code = 7.0 g/dL 6.3-8.3 -[place] n 2885-2) 4.6-7.0 g/dL1 week 4.4-7 .6 g/dL7 months-1y ear 5.1-7 .3 g/dL1-2 years 5.6-7 .5 g/dL>3 years 6.0-8 .0 g/wL46-307 6.3-8 .3 g/dL Albumin (test code = 3.6 g/dL 3.5-5 175-7) A/G ratio (test code = 1.1 0.7-3.8 1759-0) Alkaline phosphatase 80 U/L 35-104 (test code = 6768-6) AST (test code = 1920-8) 15 U/L 10-35 ALT (test code = 1742-6) 14 U/L 5-50 Total bilirubin (test <0.2 0-1.2 code = 1974-) Lab Interpretation (test Abnormal code = 49120-1) [place] MethodistC-reactive [id number] 15:42:23 Test Item Value Reference Range Interpretation Comments CRP (test code = 1987-) <0.30 0-0.5 [facility] MethodistLipase [id number] 15:42:22 Test Item Value Reference Range Interpretation Comments Lipase (test code = 3040-3) 15 U/L 13-60 Mac MethodistEstimated [id number] 15:42:22 Test Item Value Reference Range Interpretation Comments Estimated GFR (test >=90 mL/min/1.73 m2 Vicente vasquez Units code = 5488) InterpretationG 1 >=90 Normal or highG2 60-89 Mildly svktntccwC5e 45-59 Mildly to mode rately jfvdunaulE9c 30-44 Moderately to severely decreasedG4 15-29 Severely decre asedG5 <15 Kidn ey failureThe eGFR was calculated sawyer serna the Chronic Kidney Disease Epidemiology Co llaboration (CKD-EPI) equat ion. Interpretation is based on recommendations of the National Kidney Foundation-Kidn ey Disease Outcomes Qualit y Initiative (NKF-KDOQI) pub lished in 2014. Mac MethodistAmylase [id number] 15:42:20 Test Item Value Reference Range Interpretation Comments Amylase (test code = 1798-8) 65 U/L 28-100 Mac MethodistT4, [id number] 15:39:38 Test Item Value Reference Range Interpretation Comments T4, free (test code = 3024-7) 1.0 ng/dL 0.9-1.7 Mac [id number] 15:39:05 Test Item Value Reference Range Interpretation Comments T4 (test code = 3026-2) 6.0 ug/dL 4.5-11.7 Mac MethodistThyroid stimulating [id number] 15:39:05 Test Item Value Reference Range Interpretation Comments TSH (test code = 3016-3) 0.62 0.27- 4.20 uIU/mL Mac MethodistCBC [id number] 14:57:05 Test Item Value Reference Range Interpretation Comments WBC (test code = 22160-5) 5.07 4.50- 11.00 k/uL RBC (test code = 96201-7) 4.26 m/uL 4.2-5.5 HGB (test code = 718-7) 12.6 g/dL 12-16 HCT (test code = 4544-3) 38.0 % 37-47 MCV (test code = 787-2) 89.2 fL 82-100 MCH (test code = 785-6) 29.6 pg 27-34 MCHC (test code = 786-4) 33.2 g/dL 31-37 RDW - SD (test code = 54256-0) 40.3 fL 37-55 MPV (test code = 28791-6) 9.7 fL 8.8-13.2 Platelet count (test code = 246 150- 400 k/uL 22827-2) Nucleated RBC (test code = 0.00 /100 WBC 83584-0) Bubba Talbot
--- NOTE | 2019-12-17 16:50 | RAD REPORT ---
EXAM DESCRIPTION: Shin Single View12/17/2019 3:56 pm CLINICAL HISTORY: Chest pain COMPARISON: none FINDINGS: The lungs appear clear of acute infiltrate. The heart is normal size IMPRESSION: No acute abnormalities displayed
--- NOTE | 2019-12-17 17:04 | ER ---
Nurse's Notes [facility] Name: Mariam Groves Age: 19 yrs Sex: Female : 2000 Arrival Date: 12/17/2019 Time: 14:53 Bed 5 Private MD: Diagnosis: Acute pharyngitis;Acute bronchitis Presentation: 12/16 15:19 Chief complaint: Patient states: was seen at urgent care for sore throat yesterday, had em strep swab done but it was negative, dx with a bacterial infection and bev. ear infection and given some unknown antibiotic, yesterday developed chest pain and has developed a nonproductive cough, had a covid test done 2 weeks ago due to an endoscopy but was asymptomatic, symptoms started 3 days ago. Coronavirus screen: Client denies travel out of the [place] in the last 14 days. Ebola Screen: Patient negative for fever greater than or equal to 101.5 degrees Fahrenheit, and additional compatible Ebola Virus Disease symptoms Patient denies exposure to infectious person. Patient denies travel to an Ebola-affected area in the 21 days before illness onset. No symptoms or risks identified at this time. Initial Sepsis Screen: Does the patient have a suspected source of infection? No. Patient's initial sepsis screen is negative. Initial Sepsis Screen: Does the patient meet any 2 criteria? HR > 90 bpm. No. Patient's initial sepsis screen is negative. Risk Assessment: Do you want to hurt yourself or someone else? Patient reports no desire to harm self or others. Onset of symptoms was December 14, 2019. 15:19 Method Of Arrival: Ambulatory em 15:19 Acuity: LESLY 3 em Historical: - Allergies: 15:23 Gentamicin; em - PMHx: 15:23 Anxiety; Depression; em - PSHx: 15:23 None; em - Immunization history:: Adult Immunizations up to date. - Social history:: Smoking status: Patient denies any tobacco usage or history of. Screenin:23 Abuse screen: Denies threats or abuse. Nutritional screening: No deficits noted. em Tuberculosis screening: No symptoms or risk factors identified. Fall Risk None identified. Assessment: 15:19 General: Appears in no apparent distress. comfortable, Behavior is calm, cooperative, em appropriate for age, Denies fever. Pain: Complains of pain in throat and chest. Neuro: Level of Consciousness is awake, alert, obeys commands, Oriented to person, place, time, situation, Appropriate for age. Cardiovascular: Capillary refill < 3 seconds Patient's skin is warm and dry. Respiratory: Reports cough that is non-productive, Airway is patent Respiratory effort is even, unlabored, Respiratory pattern is regular, symmetrical. GI: Patient currently denies nausea, vomiting. EENT: Throat is reddened has enlarged tonsils bilaterally. Derm: Skin is intact, is healthy with good turgor, Skin is pink, warm \T\ dry. Musculoskeletal: Capillary refill < 3 seconds, Range of motion: intact in all extremities. 15:55 Reassessment: covid swab sent to lab. em 17:15 Reassessment: Patient appears in no apparent distress at this time. Patient and/or em family updated on plan of care and expected duration. Pain level reassessed. Patient is alert, oriented x 3, equal unlabored respirations, skin warm/dry/pink. Vital Signs: 15:19 BP 110 / 81; Pulse 104; Resp 20; Temp 98.8; Pulse Ox 96% on R/A; Weight 90.72 kg; em Height 5 ft. 4 in. (162.56 cm); 15:19 Body Mass Index 34.33 (90.72 kg, 162.56 cm) em ED Course: 14:53 Patient arrived in ED. mr 15:05 Enrique Vazquez PA is PHCP. jmm 15:05 Salomón Woodward MD is Attending Physician. jmm 15:13 Elia Garland, RN is Primary Nurse. em 15:22 Triage completed. em 15:23 Arm band placed on. em 15:23 Patient has correct armband on for positive identification. Placed in gown. Bed in low em position. Call light in reach. 15:45 EKG done, by ED staff, reviewed by Enrique ANDREW. 3 15:57 Chest Single View XRAY In Process Unspecified. EDMS 17:24 No provider procedures requiring assistance completed. Patient did not have IV access em during this emergency room visit. Administered Medications: 17:12 Drug: Decadron 10 mg Route: IM; Site: left gluteus; em 17:25 Follow up: Response: No adverse reaction em Outcome: 17:04 Discharge ordered by . jmm 17:24 Discharged to home ambulatory. em 17:24 Condition: good 17:24 Discharge instructions given to patient, Instructed on discharge instructions, follow up and referral plans. medication usage, Demonstrated understanding of instructions, follow-up care, medications, Prescriptions given X 2. 17:26 Patient left the ED. em Addendum: 12/22/2019 12:29 Addendum: COVID-19 Result: Negative result given to RN to notify pt. Contacted by: Yojana Gilliam. Notified pt of negative COVID 19 swab results. Pt advised that even with a negative test result they should remain in isolation until symptom free for 3 days without medication. Pt also advised to return to the ED for worsening symptoms. Signatures: Dispatcher [employer] Shyann Banuelos, Enrique Padilla RN, PA PA jmm Rivera, Mary mr Munoz, Edgar, RN RN em Herrera, Deanna [facility]
--- NOTE | 2019-12-17 17:04 | EDPHYS ---
Physician Documentation [facility] Name: Mariam Groves Age: 19 yrs Sex: Female : 2000 Arrival Date: 12/17/2019 Time: 14:53 Bed 5 Private MD: ED Physician Salomón Woodward HPI: 12/16 15:16 This 19 yrs old Female presents to ER via Ambulatory with complaints of Sore jmm Throat, Chest Pain. 15:16 The patient presents with sore throat. jmm 16:57 Onset: The symptoms/episode began/occurred gradually, 1 day(s) ago. Modifying factors: jmm The symptoms are alleviated by nothing, the symptoms are aggravated by nothing. Associated signs and symptoms: Pertinent positives: cough, earache, Sore throat. This is a 19 year old female with a history of anxiety, depression that presents to the ED with complaints of sore throat beginning yesterday. Patient seen at and prescribed abx. States symptoms worsened this morning with cough and shortness of breath with mild wheezing. . Historical: - Allergies: 15:23 Gentamicin; em - PMHx: 15:23 Anxiety; Depression; em - PSHx: 15:23 None; em - Immunization history:: Adult Immunizations up to date. - Social history:: Smoking status: Patient denies any tobacco usage or history of. ROS: 16:57 Constitutional: Positive for chills. jmm 16:57 ENT: Positive for ear pain, sore throat. 16:57 Respiratory: Positive for cough, shortness of breath, wheezing. 16:57 All other systems are negative. Exam: 16:01 ECG was reviewed by the Attending Physician. jmm 16:57 Constitutional: This is a well developed, well nourished patient who is awake, alert, jmm and in no acute distress. Head/Face: atraumatic. Eyes: EOMI, no conjunctival erythema appreciated ENT: Moist Mucus Membranes Neck: Trachea midline, Supple Chest/axilla: Normal chest wall appearance and motion. 16:57 Abdomen/GI: Non distended, soft Back: Normal ROM Skin: General appearance color normal MS/ Extremity: Moves all extremities, no obvious deformities appreciated, no edema noted to the lower extremities Neuro: Awake and alert, normal gait Psych: Behavior is normal, Mood is normal, Patient is cooperative and pleasant 16:57 ENT: Posterior pharynx: Airway: normal, Uvula: midline, erythema, that is mild. 16:57 Cardiovascular: Rate: normal, Rhythm: regular. 16:57 Respiratory: the patient does not display signs of respiratory distress, Respirations: normal, Breath sounds: are clear throughout. Vital Signs: 15:19 BP 110 / 81; Pulse 104; Resp 20; Temp 98.8; Pulse Ox 96% on R/A; Weight 90.72 kg; em Height 5 ft. 4 in. (162.56 cm); 15:19 Body Mass Index 34.33 (90.72 kg, 162.56 cm) em MDM: 15:16 Patient medically screened. anna marie 17:00 Data reviewed: vital signs, nurses notes. Counseling: I had a detailed discussion with [facility] the patient and/or guardian regarding: the historical points, exam findings, and any diagnostic results supporting the discharge/admit diagnosis, lab results, the need for outpatient follow up, to return to the emergency department if symptoms worsen or persist or if there are any questions or concerns that arise at home. 17:03 Data reviewed: lab test result(s), radiologic studies, plain films. ED course: Patient nisha is alert and non toxic in appearance in the ED. No signs of resp distress. Given IM steroids and advised to follow up with pcp and otherwise given strict return precautions. Patient understood and agrees with the plan of care. . 12/16 15:46 Order name: [id number] [facility] 12/16 15:40 Order name: Chest Single View XRAY; Complete Time: 16:54 [facility] 12/16 15:40 Order name: EKG - Nurse/Tech; Complete Time: 15:49 [facility] EC:01 Rate is 82 beats/min. Rhythm is regular. QRS [place] is Normal. [place] interval is normal. QRS [facility] interval is normal. QT interval is normal. No Q waves. T waves are Normal. No ST changes noted. Reviewed by me. Administered Medications: 17:12 Drug: Decadron 10 mg Route: IM; Site: left gluteus; em 17:25 Follow up: Response: No adverse reaction em Disposition: 12/17/19 17:04 Discharged to Home. Impression: Acute pharyngitis, Acute bronchitis. - Condition is Stable. - Discharge Instructions: Acute Bronchitis, Adult, Pharyngitis. - Prescriptions for Albuterol Sulfate 90 mcg/actuation - inhale 1-2 puff by INHALATION route every 4-6 hours; 1 Inhaler. - Medication Reconciliation Form, Thank You Letter, Antibiotic Education, Prescription Opioid Use, Work release form form. - Follow up: Private Physician; When: 2 - 3 days; Reason: Recheck today's complaints, Continuance of care, Re-evaluation by your physician. Addendum: 12/19/2019 08:43 Co-signature as Attending Physician, Salomón Woodward MD I agree with the assessment and c garcia plan of care. Signatures: Dispatcher [employer] EDSalomón Boland MD MD cha Mickail, Joel, PA PA Elia Scott, RN RN em Corrections: (The following items were deleted from the chart) 12/16 16:59 15:16 The patient presents with sore throat, nisha cameron 17:26 17:04 12/17/2019 17:04 Discharged to Home. Impression: Acute pharyngitis; Acute em bronchitis. Condition is Stable. Forms are Medication Reconciliation Form, Thank You Letter, Antibiotic Education, Prescription Opioid Use. Follow up: Private Physician; When: 2 - 3 days; Reason: Recheck today's complaints, Continuance of care, Re-evaluation by your physician. nisha
[2019-12-17] MEDS ORDERED: dexAMETHasone 4 MG/ML VIAL ONE (17:11)
[2019-12-17 17:40] VITALS: BP 110/81; TEMP 98.8; O2SAT 96
--- NOTE | 2019-12-20 12:09 | EKG ---
Test Date: 2019-12-17 Test Time: 15:45:13 Software Engineer Developer: NEREYDA MEASUREMENT RESULTS: Intervals: Rate: 82 [place]: 142 QRSD: 86 QT: 380 QTc: 443 [place]: P: 62 [place]: 142 QRS: 55 T: 62 INTERPRETIVE STATEMENTS: Normal sinus rhythm Normal ECG No previous ECG available for comparison Electronically Signed On 12-20-19 12:03:39 MACHINE BUILDER by Javid Rosenberg
== END 2019-12-17 17:26 | disposition home or self-care (01) ==
LOC: ER 14:50
DX: J20.9 Acute bronchitis, unspecified (principal); Z20.828 Contact with and (suspected) exposure to other viral communicable diseases; Z88.3 Allergy status to other anti-infective agents
CPT/HCPCS: 93005; 71045; 96372; 99284; U0002; J1100